=== PATIENT | female | born 1985 | race Caucasian/White ===

== ENCOUNTER 2019-09-02 09:48 | Outpatient (CLI) | payer OTHER, SELFPAY ==
[2019-09-02 10:31] LABS: HCG Quantitative 25.37 mIU/mL
== END 2019-09-02 09:49 | disposition home or self-care (01) ==
LOC: LAB 09:53
PROVIDERS: Family Provider Family Medicine; PCP Family Medicine; Visit Provider Obstetrics & Gynecology Reproductive Endocrinology
DX: N92.6 Irregular menstruation, unspecified (principal)
CPT/HCPCS: 36415; 84702

== ENCOUNTER 2019-09-04 06:49 | Outpatient (CLI) | payer OTHER, SELFPAY ==
[2019-09-04 07:24] LABS: HCG Quantitative 56.02 mIU/mL
== END 2019-09-04 06:50 | disposition home or self-care (01) ==
PROVIDERS: Family Provider Family Medicine; PCP Family Medicine; Visit Provider Obstetrics & Gynecology Reproductive Endocrinology
DX: N92.6 Irregular menstruation, unspecified (principal)
CPT/HCPCS: 36415; 84702

== ENCOUNTER 2019-09-17 11:29 | Emergency (ER) | payer OTHER, SELFPAY ==
[2019-09-17 11:52] VITALS: BP 142/107; PULSE 98; RESP 16; TEMP 37.3; O2SAT 100; BMI 26.9
--- NOTE | 2019-09-17 12:03 | PC.NURSE ---
Patient reports that she is 5 weeks . Patient states she is being treated in [place] at a fertility clinic. Patient reports this morning she woke up spotting. Patient states that she is now bleeding heavier. Patient reports that the fertility clinic sent her here to get her hormones checked and a transvaginal ultrasound. Patient refusing to get in gown and refusing a pelvic exam.
--- NOTE | 2019-09-17 12:08 | US_ITS ---
NOTE: Report was unsigned for reason: Order was edited. Original Signature date and time was: 09/17/19 6039 WS: [id number] TRANSABDOMINAL AND TRANSVAGINAL FIRST TRIMESTER ULTRASOUND HISTORY: Pain COMPARISON: None available. FINDINGS: Detail evaluation transabdominal transvaginal show no evidence of intrauterine . The salpinx bilaterally were normal. Endometrium measures 0.49 cm no evidence of is seen. Uterus measures 8.95 cm x 4.35 cm Right ovary measures 2.6 cm x 1.1 cm x 2.2 cm. Left ovary measures 2.7 cm x 1.7 cm x 2.5 cm. MTDD US/US OB <=14 wk fetus w transvag IMPRESSION: No evidence of intra or extrauterine .
[2019-09-17 12:22] LABS: Bilirubin Urine Neg (NEGATIVE); Blood Urine 3+ (Negative); Glucose Urine UA Norm (Normal); Ketones Urine Negative (Negative); Leukocyte Esterase Urine Negative (Negative); Nitrate Urine Negative (Negative); Protein Urine Neg (Negative); Specific Gravity, Urine 1.005 (1.005-1.030); Urine Appearance Clear (CLEAR); Urine Color Straw (Yellow); Urobilinogen Urine Norm (Negative)
--- NOTE | 2019-09-17 12:24 | ED_ITS ---
HPI - General: Chief complaint: Vaginal Bleeding Stated complaint: 5 weeks preg and Time Seen by Provider: 09/17/19 12:06 History of Present Illness: HPI Narrative: Darlyn is a very nice 34-year-old female who comes in complaining of vaginal bleeding. Symptoms began today with spotting and now she is developed some significant clots. She is currently 5-1/2 weeks she is followed out of a fertility clinic at [facility] as she has a history of difficulty caring pregnancies. She is 5, para 1 aborta 3. She is currently receiving daily Lovenox injections as they believe she has a clotting disorder that causes her symptoms. She denies any dysuria, fever, cramping, low back pain or otherwise. She is here because she is been instructed to get certain labs performed and a pelvic ultrasound. Patient otherwise no complaints or concerns. Associated symptoms: Deny abdominal pain, dysuria, headache(s), malaise, nausea, syncope or vomiting Review of Systems General: Reports: other (negative unless marked) Const: Denies: fever, chills, body aches, fatigue, malaise or diaphoresis Eyes: Denies: change in vision or blurry vision ENMT: Denies: throat pain, painful swallowing, hoarseness, ear pain, ear discharge, Change in hearing or nasal discharge Card: Denies: chest pain, palpitations, irregular heart rhythm, syncope, pre- syncope, shortness of breath on exertion or shortness of breath when lying down Resp: Denies: shortness of breath, productive cough, non-productive cough, wheezing, coughing up blood or chest congestion GI: Denies: abdominal pain, nausea, vomiting, vomiting blood, coffee grounds in vomit, diarrhea, constipation, cramping, blood in stool or black tarry stool : Denies: flank pain, painful urination, urinary frequency, urinary urgency, decreased urine ouput, urinary incontinence or blood in urine Musc: Denies: neck pain, back pain, extremity pain, extremity swelling, joint pain, joint swelling, joint warmth or joint stiffness Skin/Breast: Denies: rash, skin tenderness or yellow skin Neuro: Denies: headache, numbness in extremities, weakness in extremities, changes in sensation, lack of coordination, difficulty walking, dizziness, vertigo or confusion Endo: Denies: excessive thirst, tired all the time, cold intolerance, excessive sweating, flushing or hot flashes Vince/Lymph: Denies: easy bruising, easy bleeding, petechiae or enlarged lymph nodes All/Imm: Denies: hives, throat swelling, tongue swelling, facial swelling or acute wheezing PFSH ED PFSH: Social History Smoking and tobacco status: never smoked Physical Exam Const: COMMON NORMALS: no apparent distress, oriented x3, no limitations, healthy appearing and well nourished EXAM LIMITATIONS: no altered mental status GENERAL APPEARANCE: cooperative, well kempt and well developed ORIENTATION/CONSCIOUSNESS: Yes awake HENMT: COMMON NORMALS: normocephalic, head/scalp atraumatic, hearing grossly normal bilaterally, external ears normal, EAC's normal, external nose normal and moist oral mucous membranes HEAD & SCALP: normal to inspection, normocephalic and atraumatic FACE & SINUS: normal facial exam and face symmetric NOSE: external nose normal and nares normal EXTERNAL EAR: Yes external ears normal EXTERNAL AUDITORY CANAL: EAC's normal MOUTH: oral and palatal mucosa normal and tongue normal Eye: COMMON NORMALS: PERRL, EOMs intact bilaterally, conjunctivae normal and no scleral icterus GENERAL EYE: normal appearance of both eyes and normal light reflex CONJUNCTIVA: Yes conjunctivae normal SCLERA: sclerae normal CORNEA: Yes corneas normal PUPIL: Yes PERRL DIRECT OPHTHALMOSCOPY: Yes normal light reflex Neck/C-Spine: COMMON NORMALS: full ROM, no lymphadenopathy, supple, no meningeal signs and no JVD GENERAL: Yes normal visual inspection and Yes trachea midline CERVICAL SPINE: Yes cervical ROM normal Chest: COMMONS NORMALS: inspection of chest normal and palpation of chest normal Resp: COMMON NORMALS: normal respiratory effort, no retractions, no use of accessory muscles and clear to auscultation bilaterally EFFORT & INSPECTION: Yes able to speak in complete sentences AUSCULTATION: clear to auscultation bilaterally Cardio: COMMON NORMALS: no JVD, regular rate, regular rhythm, S1 normal heart sound, S2 normal heart sound, no gallops, no clicks, no murmurs and no rub JUGULAR VENOUS DISTENTION: no JVD RATE: regular rate RHYTHM: regular rhythm HEART SOUNDS: S1 normal and S2 normal GI: COMMON NORMALS: soft to palpation, non-tender, no hepatosplenomegaly and no masses INSPECTION: Yes normal to inspection PALPATION: Yes soft and Yes no hepatosplenomegaly : COMMON NORMALS: Yes no CVA tenderness BLADDER/KIDNEY EXAM: Yes no CVA tenderness Back/Pelvis: COMMON NORMALS: no CVA tenderness, thoracic and lumbar spine norm al to inspection, no thoracic nor lumbar tenderness and thoraco-lumbar ROM normal Extremity: COMMON NORMALS: normal to inspection, full ROM, normal capillary refill, no joint enlargement, no clubbing, cyanosis or edema and no calf tenderness Neuro: COMMON NORMALS: oriented x3, CN's II-XII intact bilaterally, moves all extremities, no focal motor deficits and no sensory deficits noted MENINGEAL SIGNS: Yes no meningeal signs Psych: COMMON NORMALS: mental status grossly normal, thought process normal, cooperative, affect normal, speech normal and activity/motor behavior normal APPEARANCE: Yes well kempt SPEECH: Yes normal speech THOUGHT PROCESS: normal thought process Skin: COMMON NORMALS: no rashes or lesions noted, skin turgor normal, no jaundice, no petechiae and no mottling GENERAL SKIN EXAM: no rashes or lesions noted and turgor normal Course ED course: 1230 -patient is adamantly refusing a pelvic exam. She understands this is an appropriate part of the exam for completeness to look for cervical dilatation, pelvic inflammatory disease, tissue in the cervix and vagina among many other reasons. Despite this she is adamant she does not want this done and she is willing to accept any risks or problems that would result from an incomplete evaluation. I will go ahead and ask her again once more the work-up is complete to see if she is had a change of heart but at this time she is adamant she does not want this done. Vital Signs: Vital signs: Vital Signs Temperature 99.1 F 09/17/19 11:52 Pulse Rate 98 09/17/19 11:52 Respiratory Rate 16 09/17/19 11:52 Blood Pressure 142/107 09/17/19 11:52 Pulse Oximetry 100 09/17/19 11:52 MDM - OB/Uterine Contractions Lab Data: Labs: Lab Results 09/17/19 09/17/19 Range/Units 12:05 12:23 WBC 6.8 (4.0-10.0) 10^3/ uL RBC 4.91 (4.1-5.3) 10^6/u L Hgb 14.1 (11.5-15.3) g/dL Hct 42.8 (37.0-47.0) % MCV 87.2 (81-99) fL MCH 28.7 (28.0-34.0) pg MCHC 32.9 (30.0-36.0) g/dL RDW 11.6 L (12.1-15.1) % Plt Count 279 (130-400) 10^3/c mm MPV 9.8 (7.4-10.4) fL Neut % (Auto) 77.4 % Lymph % (Auto) 18.0 % [place] % (Auto) 3.5 % Eos % (Auto) 0.4 % Baso % (Auto) 0.4 % Neut # (Auto) 5.3 (1.8-7.7) 10^3/u L Lymph # (Auto) 1.2 (0.8-4.8) 10^3/u L [place] # (Auto) 0.2 (0.2-0.9) 10^3/u L Eos # (Auto) 0.0 (0.0-0.8) 10^3/u L Baso # (Auto) 0.0 (0.0-0.1) 10^3/u L Nucleated RBC % (a uto) 0 % Nucleated RBCs # 0.0 /100WBC Urine Color Straw (Yellow) Urine Appearance Clear (CLEAR) Urine pH 7.0 (5-7) Ur Specific Gravit y 1.005 (1.005-1.030) Urine Protein Neg (Negative) Urine Glucose (UA) Norm (Normal) Urine Ketones Negative (Negative) Urine Blood 3+ H (Negative) Urine Nitrate Negative (Negative) Urine Bilirubin Neg (NEGATIVE) Urine Urobilinogen Norm (Negative) mg/dL Ur Leukocyte Marlin ase Negative (Negative) Coding Level of Care Code ED Supervisor [employer] for Chg Fwd Exam Comprehensive
--- NOTE | 2019-09-17 12:25 | ED_ITS ---
Entered by Candace Hernandes, acting as scribe for HPI - Female Genitourinary General: Chief complaint: Vaginal Bleeding Stated complaint: 5 weeks preg and Time Seen by Provider: 09/17/19 12:06 Source: patient and RN notes reviewed Mode of arrival: ambulatory Limitations: no limitations History of Present Illness: HPI Narrative: Darlyn is a very nice 34-year-old female who comes in complaining of vaginal bleeding. She says she started spotting earlier today and then had heavier bleeding later in the day. She believes herself to be 5-1/2 weeks . She has a clotting disorder that is not been named but is followed out of a fertility clinic in [place]. She is 5 para 1 aborta 3. 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 She denies any other discharge, abdominal pain, pelvic pain, dysuria, urinary frequency urgency or any other complaints. Onset (ago): hour(s) (this morning) Associated symptoms: Deny abdominal pain, headache(s), nausea or syncope Related Data: : 5 Review of Systems General: Reports: other (negative unless marked) Const: Denies: fever, chills, body aches, fatigue, malaise or diaphoresis Eyes: Denies: change in vision or blurry vision ENMT: Denies: throat pain, painful swallowing, hoarseness, ear pain, ear discharge, Change in hearing or nasal discharge Card: Denies: chest pain, palpitations, irregular heart rhythm, syncope, pre- syncope, shortness of breath on exertion or shortness of breath when lying down Resp: Denies: shortness of breath, productive cough, non-productive cough, wh eezing, coughing up blood or chest congestion GI: Denies: abdominal pain, nausea, vomiting, vomiting blood, coffee grounds in vomit, diarrhea, constipation, cramping, blood in stool or black tarry stool : Reports: other (See HPI); Denies: flank pain, painful urination, urinary frequency, urinary urgency, decreased urine ouput, urinary incontinence or blood in urine Musc: Denies: neck pain, back pain, extremity pain, extremity swelling, joint pain, joint swelling, joint warmth or joint stiffness Skin/Breast: Denies: rash, skin tenderness or yellow skin Neuro: Denies: headache, numbness in extremities, weakness in extremities, changes in sensation, lack of coordination, difficulty walking, dizziness, vertigo or confusion Endo: Denies: excessive thirst, tired all the time, cold intolerance, excessive sweating, flushing or hot flashes Vince/Lymph: Denies: easy bruising, easy bleeding, petechiae or enlarged lymph nodes All/Imm: Denies: hives, throat swelling, tongue swelling, facial swelling or acute wheezing PFSH ED PFSH: Social History Smoking and tobacco status: never smoked Female Reproductive History: : 5 Physical Exam Const: COMMON NORMALS: no apparent distress, oriented x3, no limitations, healthy appearing and well nourished EXAM LIMITATIONS: no altered mental status GENERAL APPEARANCE: cooperative, well kempt and well developed ORIENTATION/CONSCIOUSNESS: Yes awake HENMT: COMMON NORMALS: normocephalic, head/scalp atraumatic, hearing grossly normal bilaterally, external ears normal, EAC's normal, external nose normal and moist oral mucous membranes HEAD & SCALP: normal to inspection, normocephalic and atraumatic FACE & SINUS: normal facial exam and face symmetric NOSE: external nose normal and nares normal EXTERNAL EAR: Yes external ears normal EXTERNAL AUDITORY CANAL: EAC's normal MOUTH: oral and palatal mucosa normal and tongue normal Eye: COMMON NORMALS: PERRL, EOMs intact bilaterally, conjunctivae normal and no scleral icterus GENERAL EYE: normal appearance of both eyes and normal light reflex CONJUNCTIVA: Yes conjunctivae normal SCLERA: sclerae normal CORNEA: Yes corneas normal PUPIL: Yes PERRL DIRECT OPHTHALMOSCOPY: Yes normal light reflex Neck/C-Spine: COMMON NORMALS: full ROM, no lymphadenopathy, supple, no meningeal signs and no JVD GENERAL: Yes normal visual inspection and Yes trachea midline CERVICAL SPINE: Yes cervical ROM normal Chest: COMMONS NORMALS: inspection of chest normal and palpation of chest normal Resp: COMMON NORMALS: normal respiratory effort, no retractions, no use of accessory muscles and clear to auscultation bilaterally EFFORT & INSPECTION: Yes able to speak in complete sentences AUSCULTATION: clear to auscultation bilaterally Cardio: COMMON NORMALS: no JVD, regular rate, regular rhythm, S1 normal heart sound, S2 normal heart sound, no gallops, no clicks, no murmurs and no rub JUGULAR VENOUS DISTENTION: no JVD RATE: regular rate RHYTHM: regular rhythm HEART SOUNDS: S1 normal and S2 normal GI: COMMON NORMALS: soft to palpation, non-tender, no hepatosplenomegaly and no masses INSPECTION: Yes normal to inspection PALPATION: Yes soft and Yes no hepatosplenomegaly : COMMON NORMALS: Yes no CVA tenderness BLADDER/KIDNEY EXAM: Yes no CVA tenderness Back/Pelvis: COMMON NORMALS: no CVA tenderness, thoracic and lumbar spine normal to inspection, no thoracic nor lumbar tenderness and thoraco-lumbar ROM normal Extremity: COMMON NORMALS: normal to inspection, full ROM, normal capillary refill, no joint enlargement, no clubbing, cyanosis or edema and no calf tenderness Neuro: COMMON NORMALS: oriented x3, CN's II-XII intact bilaterally, moves all extremities, no focal motor deficits and no sensory deficits noted MENINGEAL SIGNS: Yes no meningeal signs Psych: COMMON NORMALS: mental status grossly normal, thought process normal, cooperative, affect normal, speech normal and activity/motor behavior normal APPEARANCE: Yes well kempt SPEECH: Yes normal speech THOUGHT PROCESS: normal thought process Skin: COMMON NORMALS: no rashes or lesions noted, skin turgor normal, no jaundice, no petechiae and no mottling GENERAL SKIN EXAM: no rashes or lesions noted and turgor normal Course Vital Signs: Vital signs: Vital Signs Temperature 99.1 F 09/17/19 11:52 Pulse Rate 98 09/17/19 11:52 Respiratory Rate 16 09/17/19 11:52 Blood Pressure 142/107 09/17/19 11:52 Pulse Oximetry 100 09/17/19 11:52 MDM - Female MDM Narrative: Medical decision making narrative: Patient is understands that this is likely an early miscarriage. I have informed her that since her beta hCG is falling that this is likely an incomplete miscarriage. I have informed her an ectopic cannot be ruled out and she understands this. She agrees to return should her symptoms change or worsen sooner than Friday but she plans on returning here on Friday for repeat blood testing and ultrasound. Lab Data: Attestation: I reviewed the patient's lab results. Labs: Lab Results 09/17/19 09/17/19 09/17/19 Range/Units 12:05 12:23 12:23 WBC 6.8 (4.0-10.0) 10^3/ uL RBC 4.91 (4.1-5.3) 10^6/u L Hgb 14.1 (11.5-15.3) g/dL Hct 42.8 (37.0-47.0) % MCV 87.2 (81-99) fL MCH 28.7 (28.0-34.0) pg MCHC 32.9 (30.0-36.0) g/dL RDW 11.6 L (12.1-15.1) % Plt Count 279 (130-400) 10^3/c mm MPV 9.8 (7.4-10.4) fL Neut % (Auto) 77.4 % Lymph % (Auto) 18.0 % [place] % (Auto) 3.5 % Eos % (Auto) 0.4 % Baso % (Auto) 0.4 % Neut # (Auto) 5.3 (1.8-7.7) 10^3/u L Lymph # (Auto) 1.2 (0.8-4.8) 10^3/u L [place] # (Auto) 0.2 (0.2-0.9) 10^3/u L Eos # (Auto) 0.0 (0.0-0.8) 10^3/u L Baso # (Auto) 0.0 (0.0-0.1) 10^3/u L Nucleated RBC % (a uto) 0 % Nucleated RBCs # 0.0 /100WBC Sodium (136-145) mmol/L Potassium (3.5-5.1) mmol/L Chloride (98-107) mmol/L Carbon Dioxide (22-29) mmol/L Anion Gap (5-19) BUN (6-20) mg/dL Creatinine (0.5-0.9) mg/dL GFR Calculation (90-130) mL/min Glucose (65-115) mg/dL Calcium (8.5-10.5) mg/dL Total Bilirubin (0.15-1.2) mg/dL AST (0-32) U/L ALT (0-33) U/L Alkaline Phosphata se (35-105) IU/L Total Protein (6.6-8.7) g/dL Albumin (3.5-5.2) g/dL Globulin (1.3-4.6) g/dL Progesterone ng/mL Ser , Jade i-Qnt mIU/mL Urine Color Straw (Yellow) Urine Appearance Clear (CLEAR) Urine pH 7.0 (5-7) Ur Specific Gravit y 1.005 (1.005-1.030) Urine Protein Neg (Negative) Urine Glucose (UA) Norm (Normal) Urine Ketones Negative (Negative) Urine Blood 3+ H (Negative) Urine Nitrate Negative (Negative) Urine Bilirubin Neg (NEGATIVE) Prot Sulfosalicyli c Acd Urine Urobilinogen Norm (Negative) mg/dL Ur Leukocyte Marlin ase Negative (Negative) Urine RBC 15-25 H (0-2) /hpf Urine WBC None (0-5) /hpf Ur Squamous Epith Cells 15-25 H (0-5) Urine Bacteria Trace (NONE) Blood Type B Positive Rho(D) Type Positive 09/17/19 09/17/19 09/17/19 Range/Units 12:23 12:23 12:35 WBC (4.0-10.0) 10^3/ uL RBC (4.1-5.3) 10^6/u L Hgb (11.5-15.3) g/dL Hct (37.0-47.0) % MCV (81-99) fL MCH (28.0-34.0) pg MCHC (30.0-36.0) g/dL RDW (12.1-15.1) % Plt Count (130-400) 10^3/c mm MPV (7.4-10.4) fL Neut % (Auto) % Lymph % (Auto) % [place] % (Auto) % Eos % (Auto) % Baso % (Auto) % Neut # (Auto) (1.8-7.7) 10^3/u L Lymph # (Auto) (0.8-4.8) 10^3/u L [place] # (Auto) (0.2-0.9) 10^3/u L Eos # (Auto) (0.0-0.8) 10^3/u L Baso # (Auto) (0.0-0.1) 10^3/u L Nucleated RBC % (a uto) % Nucleated RBCs # /100WBC Sodium 139 (136-145) mmol/L Potassium 3.9 (3.5-5.1) mmol/L Chloride 102 (98-107) mmol/L Carbon Dioxide 25 (22-29) mmol/L Anion Gap 15.9 (5-19) BUN 10 (6-20) mg/dL Creatinine 0.9 (0.5-0.9) mg/dL GFR Calculation 71.3 L (90-130) mL/min Glucose 133 H (65-115) mg/dL Calcium 10.0 (8.5-10.5) mg/dL Total Bilirubin 0.3 (0.15-1.2) mg/dL AST 22 (0-32) U/L ALT 31 (0-33) U/L Alkaline Phosphata se 46 (35-105) IU/L Total Protein 7.1 (6.6-8.7) g/dL Albumin 4.3 (3.5-5.2) g/dL Globulin 2.8 (1.3-4.6) g/dL Progesterone 1.46 ng/mL Ser , Jade i-Qnt 44.28 mIU/mL Urine Color Yellow (Yellow) Urine Appearance Clear (CLEAR) Urine pH 8 H (5-7) Ur Specific Gravit y 1.010 (1.005-1.030) Urine Protein Neg (Negative) Urine Glucose (UA) Norm (Normal) Urine Ketones Negative (Negative) Urine Blood Neg (Negative) Urine Nitrate Negative (Negative) Urine Bilirubin Neg (NEGATIVE) Prot Sulfosalicyli c Acd Negative Urine Urobilinogen Norm (Negative) mg/dL Ur Leukocyte Marlin ase Negative (Negative) Urine RBC (0-2) /hpf Urine WBC (0-5) /hpf Ur Squamous Epith Cells (0-5) Urine Bacteria (NONE) Blood Type Rho(D) Type Imaging Data: US OB: Radiologist's impression: [address] [address] Ultrasound Report Signed Patient: Frank Anderson #: [id number] : 1985Acct#:[id number] Age/Sex: 34 / FADM Date: 09/17/19 Loc: ERRoom/Bed: Attending Dr: Ordering Provider/Ordering MD: Ema Leahy DO Date of Service: 09/17/19 Procedure(s): US OB <=14 wk fetus w transvag Accession Number(s): [id number] Report Number: [id number] WS: [id number] TRANSABDOMINAL AND TRANSVAGINAL FIRST TRIMESTER ULTRASOUND HISTORY: Pain COMPARISON: None available. FINDINGS: Detail evaluation transabdominal transvaginal show no evidence of intrauterine . The salpinx bilaterally were normal. Endometrium measures 0.49 cm no evidence of is seen. Uterus measures 8.95 cm x 4.35 cm Right ovary measures 2.6 cm x 1.1 cm x 2.2 cm. Left ovary measures 2.7 cm x 1.7 cm x 2.5 cm. US/US OB <=14 wk fetus w transvag IMPRESSION: No evidence of intra or extrauterine . Dictated By:Mikey Thrasher DO Signed By:Mikey Thrasher DOSigned Date/Time:09/17/19 1307 DD/ Discharge Plan Discharge Patient Disposition: Home, Self-Care Clinical Impression: Vaginal bleeding, Incomplete Condition: Stable Prescriptions: New Macrobid 100 mg capsule 100 mg PO BID 7 Days Qty: 14 RF: 0 Discharge Orders: Discharge Order (Routine); Ordered 09/17/19 Ordered By: Ema Leahy Referrals: Ema Leahy [Emergency Provider] - 1-3 days Eitan Lucas MD [Primary Care Provider] - 1-3 days Discharge Diet: Advance as tolerated Discharge Activity: Increase activity as tolerated Patient Instructions: Ectopic (ED), Spontaneous Miscarriage (ED), Threatened Miscarriage (ED) Activity Restrictions/Additional Instructions: Please return to the ER immediately for any of the signs or symptoms listed on your discharge instruction sheets, worsening/changing of your symptoms, you are not getting better as quickly as expected, or for ANY other cause or concerns. Normal early versus ectopic or incomplete miscarriage are all possibilities as a cause of your symptoms. It is imperative you return here on Friday for repeat quantitative hCG testing and repeat ultrasound. Return sooner for heavier bleeding, pain, fever, vomiting, or for any other cause for concern. Discharge Date/Time: 09/17/19 13:58 Coding Level of Care Code ED Gear Cutting Machine Operator for Chg Fwd Exam Comprehensive The documentation recorded by the Cecilio best Valerie R, accurately reflects the service I personally performed and the decisions made by me, Ema Leahy Sep 17, 2019 11:29
[2019-09-17 12:31] LABS: Basophils % 0.4 %; Eosinophils % 0.4 %; Hematocrit 42.8 % (37.0-47.0); Hemoglobin 14.1 g/dL (11.5-15.3); Lymphocytes # 1.2 10^3/uL (0.8-4.8); Mean Corpuscular HGB Conc 32.9 g/dL (30.0-36.0); Mean Corpuscular Hemoglobin 28.7 pg (28.0-34.0); Mean Corpuscular Volume 87.2 fL (81-99); Mean Platelet Volume 9.8 fL (7.4-10.4); Monocytes # 0.2 10^3/uL (0.2-0.9); Monocytes % 3.5 %; Neutrophils # 5.3 10^3/uL (1.8-7.7); Neutrophils % 77.4 %; Nucleated Red Blood Cells % 0 %; Platelet Count 279 10^3/cmm (130-400); Red Blood Count 4.91 10^6/uL (4.1-5.3); Red Cell Distribution Width 11.6 % (12.1-15.1); White Blood Count 6.8 10^3/uL (4.0-10.0)
[2019-09-17 12:40] LABS: Add Urine Culture? No; Bacteria Urine TRACE; RBC Urine 15-25 /hpf (0-2); Squamous Epithelial Cell Urine 15-25 (0-5)
[2019-09-17 12:44] LABS: Add Urine Microscopic? NO
[2019-09-17 12:53] LABS: HCG Quantitative 44.28 mIU/mL
[2019-09-17 12:58] LABS: Bilirubin Urine Neg (NEGATIVE); Blood Urine Neg (Negative); Glucose Urine UA Norm (Normal); Ketones Urine Negative (Negative); Leukocyte Esterase Urine Negative (Negative); Nitrate Urine Negative (Negative); Protein Urine Neg (Negative); Sulfosalicylic Acid Urine Negative; Urine Appearance Clear (CLEAR); Urine Color Yellow (Yellow); Urobilinogen Urine Norm (Negative); pH Urine 8 (5-7)
[2019-09-17 13:04] LABS: Alanine Aminotransferase 31 U/L (0-33); Albumin Level 4.3 g/dL (3.5-5.2); Alkaline Phosphatase 46 IU/L (35-105); Anion Gap 15.9 (5-19); Aspartate Amino Transferase 22 U/L (0-32); Blood Urea Nitrogen 10 mg/dL (6-20); Carbon Dioxide 25 mmol/L (22-29); Chloride 102 mmol/L (98-107); Globulin 2.8 g/dL (1.3-4.6); Glomerular Filtration Rate 71.3 mL/min (90-130); Glucose 133 mg/dL (65-115); Potassium 3.9 mmol/L (3.5-5.1); Progesterone 1.46 ng/mL; Sodium 139 mmol/L (136-145); Total Bilirubin 0.3 mg/dL (0.15-1.2); Total Protein 7.1 g/dL (6.6-8.7)
--- NOTE | 2019-09-17 13:24 | PC.NURSE ---
Rounded on patient. Patient resting in bed. No distress noted. Patient has no needs at this time. Will continue to monitor patient.
[2019-09-17] MEDS: nitrofurantoin SR (BID) 100 mg Capsule PO (13:56)
== END 2019-09-17 13:58 | disposition home or self-care (01) ==
PROVIDERS: Nurse Practitioner Family; Emergency Provider Emergency Medicine; Family Provider Family Medicine; PCP Family Medicine
DX: O03.4 Incomplete spontaneous abortion without complication (principal)
CPT/HCPCS: 12345; 76801; 76815; 76817; 80053; 81001; 81003; 84144; 84702; 85025; 86900; 87491; 87591; 99283; A9270

== ENCOUNTER 2019-09-20 09:27 | Outpatient (CLI) | payer OTHER, SELFPAY ==
[2019-09-20 09:56] LABS: HCG Quantitative 8.14 mIU/mL
== END 2019-09-20 09:28 | disposition home or self-care (01) ==
LOC: LAB 09:29
PROVIDERS: Family Provider Family Medicine; PCP Family Medicine; Visit Provider Obstetrics & Gynecology Reproductive Endocrinology
DX: O03.4 Incomplete spontaneous abortion without complication (principal)
CPT/HCPCS: 84702

== ENCOUNTER 2019-09-27 07:20 | Outpatient (CLI) | payer OTHER, SELFPAY ==
[2019-09-27 07:59] LABS: HCG Quantitative < 0.50 mIU/mL
== END 2019-09-27 07:21 | disposition home or self-care (01) ==
LOC: LAB 07:20
PROVIDERS: Family Provider Family Medicine; PCP Family Medicine; Visit Provider Obstetrics & Gynecology Reproductive Endocrinology
DX: R10.2 Pelvic and perineal pain (principal)
CPT/HCPCS: 36415; 84702

== ENCOUNTER 2019-10-19 06:46 | Outpatient (CLI) | payer OTHER, SELFPAY ==
[2019-10-19 07:34] LABS: Follicle Stimulating Hormone 7.4 mIU/mL; Luteinizing Hormone 8.7 mIU/mL (0.5-41.7); Progesterone 0.558 ng/mL
[2019-10-19 07:35] LABS: Estradiol. 26.9 pg/mL
== END 2019-10-19 06:47 | disposition home or self-care (01) ==
LOC: LAB 06:50
PROVIDERS: Family Provider Family Medicine; PCP Family Medicine; Visit Provider Obstetrics & Gynecology Reproductive Endocrinology
DX: Z01.89 Encounter for other specified special examinations (principal)
CPT/HCPCS: 36415; 82670; 83001; 83002; 84144; 84702

== ENCOUNTER 2019-10-31 07:30 | Emergency (ER) | payer OTHER, SELFPAY ==
[2019-10-31 07:37] VITALS: BMI 27.4
[2019-10-31 07:40] VITALS: BP 125/93; PULSE 122; RESP 20; TEMP 36.8; O2SAT 99
--- NOTE | 2019-10-31 07:50 | ED_ITS ---
HPI - Headache General: Chief Complaint: Headache Stated Complaint: MIGRAINE, ABSCESS TOOTH Time Seen by Provider: 10/31/19 07:35 History of Present Illness: HPI Narrative: Patient arrives in the ER with a complaint of headache and abscessed tooth. Has a history of migraines. Patient states that started with an abscess on and is progressing to a migraine now. She does have photo phonophobia and photosensitivity. Has nausea and vomiting. Has abscessed tooth. Has taken hydrocodone and clindamycin. Threw up the hydrocodone she said this morning. MD elicited complaint: migraine Pertinent past history: migraines Onset (ago): day(s) Onset description: gradually Location: diffuse and down into neck Severity: severe Quality & Timing: throbbing Exacerbating factors: none Relieving factors: dark room Associated symptoms: Reports nausea and vomiting; Deny chest pain, fever(s) or rash Treatments prior to arrival: prescription analgesic Review of Systems Const: Denies: fever, chills or body aches Eyes: Denies: change in vision or blurry vision ENMT: Reports: dental pain; Denies: throat pain or nasal congestion Card: Denies: chest pain or shortness of breath on exertion Resp: Denies: shortness of breath, productive cough or non-productive cough GI: Reports: nausea and vomiting Musc: Denies: extremity pain Skin/Breast: Denies: rash Neuro: Reports: headache Psych: Denies: anxiety or depression Vince/Lymph: Denies: easy bruising PFSH ED PFSH: Social History Smoking and tobacco status: never smoked Female Reproductive History: Date of last menstrual period: 10/17/19 Physical Exam Const: COMMON NORMALS: no apparent distress, average body habitus and oriented x3 HENMT: COMMON NORMALS: normocephalic HEAD & SCALP: normal to inspection and normocephalic FACE & SINUS: normal facial exam Eye: COMMON NORMALS: conjunctivae normal GENERAL EYE: normal appearance of both eyes CONJUNCTIVA: Yes conjunctivae normal Neck/C-Spine: COMMON NORMALS: no JVD Chest: COMMONS NORMALS: inspection of chest normal Resp: COMMON NORMALS: normal respiratory effort and clear to auscultation bilaterally AUSCULTATION: clear to auscultation bilaterally Cardio: COMMON NORMALS: no JVD, regular rate and regular rhythm RATE: regular rate RHYTHM: regular rhythm GI: COMMON NORMALS: normal to inspection, nondistended, normoactive bowel sounds Extremity: COMMON NORMALS: normal to inspection and full ROM Neuro: COMMON NORMALS: oriented x3 and CN's II-XII intact bilaterally Course Vital Signs: Vital signs: Vital Signs Temperature 98.2 F 10/31/19 07:40 Pulse Rate 93 10/31/19 10:54 Respiratory Rate 16 10/31/19 10:54 Blood Pressure 118/79 10/31/19 10:54 Pulse Oximetry 100 10/31/19 10:54 Discharge Plan Discharge Patient Disposition: Home, Self-Care Clinical Impression: Migraine Qualifiers: Migraine type: without aura Status migrainosus presence: without status migrainosus Intractability: intractable Qualified Code(s): G43.019 - Migraine without aura, intractable, without status migrainosus Condition: Stable Prescriptions: New Zofran 4 mg tablet 4 mg PO Q8H PRN (Reason: nausea and vomiting) 3 Days Qty: 12 RF: 0 Imitrex 100 mg tablet 100 mg PO Q2H PRN (Reason: migraine headache) Qty: 9 RF: 0 No Action clindamycin HCl 300 mg Capsule 300 mg PO Q8H RF: 0 hydrocodone-acetaminophen 5-325 mg Tablet 1 tab PO Q6H PRN (Reason: Pain (Scale Score 4-6)) RF: 0 Discharge Orders: Discharge Order (Routine); Ordered 10/31/19 Ordered By: Brice Sánchez Referrals: Eitan Lucas MD [Primary Care Provider] - Discharge Diet: Usual diet Discharge Activity: Resume usual activity Patient Instructions: Dental Abscess (ED), Migraine Headache (ED) Activity Restrictions/Additional Instructions: Follow-up with medical provider as directed. Take medications as prescribed. Return to the ER or your medical provider if condition worsens. Please read and understand discharge instructions. If any questions ask please. Discharge Date/Time: 10/31/19 10:48 Coding Level of Care Code ED Other Sports Official for Log Fwd Exam Comprehensive
[2019-10-31] MEDS: ketorolac 30 mg/mL INJ IVP (08:09)
[2019-10-31] MEDS: ondansetron 2 mg/ML SDV 2 mL 4 MG IVP (08:09)
[2019-10-31] MEDS: sodium chloride 0.9% 1,000 ML 999 ML IV (08:11)
[2019-10-31] MEDS: diphenhydrAMINE 50 mg/mL SDV 1mL IVP (08:21)
[2019-10-31 08:30] VITALS: BP 130/75; PULSE 136; RESP 16; O2SAT 99
[2019-10-31] MEDS: SUMAtriptan 6 mg/0.5 mL SDV SUBCUT (08:50)
[2019-10-31 09:00] VITALS: BP 118/90; PULSE 96; RESP 18; O2SAT 98
[2019-10-31] MEDS: orphenadrine 30 mg/mL Inj 2 mL 60 MG IVP (09:05)
--- NOTE | 2019-10-31 09:15 | PC.NURSE ---
Patient reported increased tenseness and a knot feeling in her neck after receiving the sumatriptan. Patient states the feeling is worse after receiving med. Patient given norflex at this time. Patient states she is very sensitive to medications, meds pushed slowly.
[2019-10-31 10:54] VITALS: BP 118/79; PULSE 93; RESP 16; O2SAT 100
== END 2019-10-31 10:48 | disposition home or self-care (01) ==
PROVIDERS: Emergency Provider Nurse Practitioner Family; Family Provider Family Medicine; PCP Family Medicine
DX: G43.019 Migraine without aura, intractable, without status migrainosus (principal)
CPT/HCPCS: 12345; 96361; 96372; 96374; 96375; 99283; 99284; J1200; J1885; J2360; J2405; J3030; J7030

== ENCOUNTER 2019-12-09 15:43 | Outpatient (CLI) | payer OTHER, SELFPAY ==
[2019-12-09 16:32] LABS: HCG Quantitative 21.67 mIU/mL; Progesterone 26.12 ng/mL
== END 2019-12-09 15:44 | disposition home or self-care (01) ==
LOC: LAB 15:47
PROVIDERS: PCP Family Medicine; Visit Provider Obstetrics & Gynecology Reproductive Endocrinology
DX: N92.6 Irregular menstruation, unspecified (principal)
CPT/HCPCS: 36415; 84144; 84702

== ENCOUNTER 2019-12-13 08:22 | Outpatient (CLI) | payer OTHER, SELFPAY ==
[2019-12-13 09:07] LABS: Progesterone 25.82 ng/mL
== END 2019-12-13 08:23 | disposition home or self-care (01) ==
LOC: LAB 08:24
PROVIDERS: PCP Family Medicine; Visit Provider Obstetrics & Gynecology Reproductive Endocrinology
DX: Z01.89 Encounter for other specified special examinations (principal)
CPT/HCPCS: 36415; 84144; 84702

== ENCOUNTER 2019-12-20 10:23 | Outpatient (CLI) | payer OTHER, SELFPAY ==
[2019-12-20 11:05] LABS: Progesterone 19.55 ng/mL
== END 2019-12-20 10:24 | disposition home or self-care (01) ==
LOC: LAB 10:26
PROVIDERS: PCP Family Medicine; Visit Provider Obstetrics & Gynecology Reproductive Endocrinology
DX: Z01.89 Encounter for other specified special examinations (principal)
CPT/HCPCS: 36415; 84144; 84702

== ENCOUNTER 2019-12-22 08:35 | Outpatient (CLI) | payer OTHER, SELFPAY ==
[2019-12-22 09:20] LABS: Progesterone 20.52 ng/mL
== END 2019-12-22 08:36 | disposition home or self-care (01) ==
LOC: LAB 08:39
PROVIDERS: PCP Family Medicine; Visit Provider Obstetrics & Gynecology Reproductive Endocrinology
DX: Z01.89 Encounter for other specified special examinations (principal)
CPT/HCPCS: 36415; 84144; 84702

== ENCOUNTER 2020-01-13 18:10 | Emergency (ER) | payer OTHER, SELFPAY ==
--- NOTE | 2020-01-13 18:13 | US_ITS ---
WS: [id number] EARLY OBSTETRICAL ULTRASOUND (<14 WEEKS). HISTORY: threatened miscarriage COMPARISON: None available. Single intrauterine gestational sac is identified. Cardiac activity at 171 BPM. Loco-rump length brandi sures 1.9 cm which corresponds to a gestation of 8w3d. Normal-appearing yolk sac and amnion demonstra yumi. No subchorionic hemorrhage. No free fluid. Normal size ovaries. No free fluid. US/US OB <= 14 weeks fetus [id number] IMPRESSION: 1. Single intrauterine gestation of 8 weeks 3 days with an EDC of 08/21/2020. 2. No complications.
[2020-01-13 18:38] VITALS: BP 140/83; PULSE 98; RESP 16; TEMP 36.9; O2SAT 100; BMI 27.8
--- NOTE | 2020-01-13 18:46 | ED_ITS ---
HPI - General: Chief complaint: OB/Uterine Contractions Stated complaint: 8 weeks preg/bleeding Time Seen by Provider: 01/13/20 18:46 Source: patient Mode of arrival: ambulatory Limitations: no limitations History of Present Illness: HPI Narrative: Patient comes in today for complaints of vaginal bleeding. Patient has had 6 pregnancies with 1 full-term delivery. 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 Patient at this time goes through [place] [facility] and high risk in [place]. Patient sees Dr. Lucas for her primary care. Patient was released back to work and had started an increase in activity at work and then noticed spotting today. Patient did have a little bit urinary urgency today. Patient appears well. Patient appears no acute distress. Date of Last Menstrual Period: 10/17/19 Review of Systems General: Reports: 10 or more systems reviewed and unremarkable except in HPI and below : Reports: vaginal bleeding PFSH ED PFSH: Social History Smoking and tobacco status: never smoked Female Reproductive History: Date of last menstrual period: 10/17/19 Physical Exam Const: COMMON NORMALS: no acute distress and patient oriented x3 GENERAL APPEARANCE: cooperative HENMT: COMMON NORMALS: normocephalic and Normal external nose present HEAD & SCALP: normal to inspection and normocephalic NOSE: Normal external nose present MOUTH: Normal oral and palatal mucosa present THROAT: posterior oropharynx normal Eye: GENERAL EYE: appearance normal, both eyes and all related structures Neck/C-Spine: COMMON NORMALS: full ROM Chest: COMMONS NORMALS: normal inspection of the chest Resp: COMMON NORMALS: normal respiratory effort EFFORT & INSPECTION: Yes able to speak in complete sentences Cardio: COMMON NORMALS: regular rate and regular rhythm RATE: regular rate RHYTHM: regular rhythm GI: COMMON NORMALS: non-tender : COMMON NORMALS: Yes no CVA tenderness BLADDER/KIDNEY EXAM: Yes no CVA tenderness Back/Pelvis: COMMON NORMALS: no CVA tenderness and thoracic and lumbar spine normal to inspection Extremity: COMMON NORMALS: normal to inspection Neuro: COMMON NORMALS: patient oriented x3 and moves all extremities Psych: COMMON NORMALS: mental status grossly normal and cooperative Skin: COMMON NORMALS: no rashes or lesions noted GENERAL SKIN EXAM: no rashes or lesions noted Course Vital Signs: Vital signs: Vital Signs Temperature 98.4 F 01/13/20 18:38 Pulse Rate 98 01/13/20 18:38 Respiratory Rate 16 01/13/20 18:38 Blood Pressure 140/83 01/13/20 18:38 Pulse Oximetry 100 01/13/20 18:38 MDM - OB/Uterine Contractions MDM Narrative: Medical decision making narrative: Patient comes in today for complaints of vaginal spotting. Patient states that she just noticed some whenever she would wipe after urinating. Patient feels that it is vaginal. Patient appears well. Patient appears in no acute distress. Patient does have a history of group B strep and has recently completed treatment about 2 weeks ago with cephalexin 504 times a day. Friday patient had since seen by her [employer]BLER and everything was normal. Exam today notes no CVA tenderness, heart rates regular, vital signs are normal. Respirations are even lungs are clear to auscultation. Differential diagnosis includes cystitis, threatened miscarriage, first trimester spotting. Laboratory values noted a hemoglobin of 13 and hematocrit of 40, hCG was 125,000, ultrasound noted a in utero with a heart rate of 170, at a gestational date of 8 weeks. Reviewed exam with patient with recommendations for treatment and need for follow-up. Patient reports understanding agreed to plan. Lab Data: Labs: Lab Results 01/13/20 01/13/20 01/13/20 Range/Units 18:45 19:15 19:15 WBC 10.7 H (4.0-10.0) 10^3/ uL RBC 4.55 (4.1-5.3) 10^6/u L Hgb 13.5 (11.5-15.3) g/dL Hct 40.3 (37.0-47.0) % MCV 88.6 (81-99) fL MCH 29.7 (28.0-34.0) pg MCHC 33.5 (30.0-36.0) g/dL RDW 12.1 (12.1-15.1) % Plt Count 272 (130-400) 10^3/c mm MPV 9.9 (7.4-10.4) fL Neut % (Auto) 70.6 % Lymph % (Auto) 22.2 % [place] % (Auto) 4.9 % Eos % (Auto) 1.6 % Baso % (Auto) 0.4 % Neut # (Auto) 7.6 (1.8-7.7) 10^3/u L Lymph # (Auto) 2.4 (0.8-4.8) 10^3/u L [place] # (Auto) 0.5 (0.2-0.9) 10^3/u L Eos # (Auto) 0.2 (0.0-0.8) 10^3/u L Baso # (Auto) 0.0 (0.0-0.1) 10^3/u L Nucleated RBC % (a uto) 0 % Nucleated RBCs # 0.0 /100WBC Ser , Jade i-Qnt mIU/mL Urine Color Yellow (Yellow) Urine Appearance Clear (CLEAR) Urine pH 6.5 (5-7) Ur Specific Gravit y 1.010 (1.005-1.030) Urine Protein Neg (Negative) Urine Glucose (UA) Norm (Normal) Urine Ketones Negative (Negative) Urine Blood Neg (Negative) Urine Nitrate Negative (Negative) Urine Bilirubin Neg (NEGATIVE) Urine Urobilinogen Norm (Negative) mg/dL Ur Leukocyte Marlin ase Negative (Negative) Blood Type B Positive Rho(D) Type Positive 01/13/20 Range/Units 19:15 WBC (4.0-10.0) 10^3/ uL RBC (4.1-5.3) 10^6/u L Hgb (11.5-15.3) g/dL Hct (37.0-47.0) % MCV (81-99) fL MCH (28.0-34.0) pg MCHC (30.0-36.0) g/dL RDW (12.1-15.1) % Plt Count (130-400) 10^3/c mm MPV (7.4-10.4) fL Neut % (Auto) % Lymph % (Auto) % [place] % (Auto) % Eos % (Auto) % Baso % (Auto) % Neut # (Auto) (1.8-7.7) 10^3/u L Lymph # (Auto) (0.8-4.8) 10^3/u L [place] # (Auto) (0.2-0.9) 10^3/u L Eos # (Auto) (0.0-0.8) 10^3/u L Baso # (Auto) (0.0-0.1) 10^3/u L Nucleated RBC % (a uto) % Nucleated RBCs # /100WBC Ser , Jade i-Qnt 831031.00 mIU/mL Urine Color (Yellow) Urine Appearance (CLEAR) Urine pH (5-7) Ur Specific Gravit y (1.005-1.030) Urine Protein (Negative) Urine Glucose (UA) (Normal) Urine Ketones (Negative) Urine Blood (Negative) Urine Nitrate (Negative) Urine Bilirubin (NEGATIVE) Urine Urobilinogen (Negative) mg/dL Ur Leukocyte Marlin ase (Negative) Blood Type Rho(D) Type Discharge Plan Discharge Patient Disposition: Home, Self-Care Clinical Impression: Miscarriage, threatened, early Condition: Stable Prescriptions: Discontinued clindamycin HCl 300 mg Capsule 300 mg PO Q8H RF: 0 hydrocodone-acetaminophen 5-325 mg Tablet 1 tab PO Q6H PRN (Reason: Pain (Scale Score 4-6)) RF: 0 No Action Imitrex 100 mg tablet 100 mg PO Q2H PRN (Reason: migraine headache) Qty: 9 RF: 0 Discharge Orders: Discharge Order (Routine); Ordered 01/13/20 Ordered By: Levy Zapien Referrals: Eitan Lucas MD [Primary Care Provider] - Discharge Diet: Usual diet Discharge Activity: Increase activity as tolerated Activity Restrictions/Additional Instructions: Home and rest. No lifting. Pelvic rest. Drink plenty of water. Follow-up with high risk specialist in the morning. Return to the ER for worsening bleeding with greater than 1 pad in 30 minutes. Stand Alone Forms: Work/School Release Discharge Date/Time: 01/13/20 20:09 Coding Level of Care Code ED Multifocal Button Inspector for Chg Fwd Exam Comprehensive
[2020-01-13 19:25] LABS: Basophils % 0.4 %; Eosinophils # 0.2 10^3/uL (0.0-0.8); Eosinophils % 1.6 %; Hematocrit 40.3 % (37.0-47.0); Hemoglobin 13.5 g/dL (11.5-15.3); Lymphocytes # 2.4 10^3/uL (0.8-4.8); Lymphocytes % 22.2 %; Mean Corpuscular HGB Conc 33.5 g/dL (30.0-36.0); Mean Corpuscular Hemoglobin 29.7 pg (28.0-34.0); Mean Corpuscular Volume 88.6 fL (81-99); Mean Platelet Volume 9.9 fL (7.4-10.4); Monocytes # 0.5 10^3/uL (0.2-0.9); Monocytes % 4.9 %; Neutrophils # 7.6 10^3/uL (1.8-7.7); Neutrophils % 70.6 %; Nucleated Red Blood Cells % 0 %; Platelet Count 272 10^3/cmm (130-400); Red Blood Count 4.55 10^6/uL (4.1-5.3); Red Cell Distribution Width 12.1 % (12.1-15.1); White Blood Count 10.7 10^3/uL (4.0-10.0)
[2020-01-13 20:01] LABS: Add Urine Microscopic? NO
[2020-01-13 20:14] LABS: Bilirubin Urine Neg (NEGATIVE); Blood Urine Neg (Negative); Glucose Urine UA Norm (Normal); Ketones Urine Negative (Negative); Leukocyte Esterase Urine Negative (Negative); Nitrate Urine Negative (Negative); Protein Urine Neg (Negative); Urine Appearance Clear (CLEAR); Urine Color Yellow (Yellow); Urobilinogen Urine Norm (Negative); pH Urine 6.5 (5-7)
== END 2020-01-13 20:09 | disposition home or self-care (01) ==
PROVIDERS: Emergency Medicine; Emergency Provider Nurse Practitioner Family; PCP Family Medicine
DX: O20.0 Threatened abortion (principal); Z3A.08 8 weeks gestation of pregnancy
CPT/HCPCS: 12345; 76801; 81003; 84702; 85025; 86900; 99281; 99283

== ENCOUNTER → 2020-04-19 09:58 | Outpatient (BNVA) | payer OTHER, SELFPAY | PROVIDERS: PCP Family Medicine; Visit Provider Family Medicine | DX: Z11.59 Encounter for screening for other viral diseases (principal); Z20.828 Contact with and (suspected) exposure to other viral communicable diseases | CPT/HCPCS: 87635 ==

== ENCOUNTER 2020-11-25 11:02 | Emergency (ER) | payer OTHER, SELFPAY ==
[2020-11-25 11:04] VITALS: BP 142/91; PULSE 121; RESP 16; O2SAT 97; BMI 28.3
--- NOTE | 2020-11-25 11:16 | CTR_ITS ---
PROCEDURE INFORMATION: Exam: CT Abdomen And Pelvis With Contrast Exam date and time: 11/25/2020 11:26 AM Age: 35 years old Clinical indication: Other: Hematochezia; Prior surgery; Surgery date: 6+ months; Surgery type: C-sect TECHNIQUE: Imaging protocol: Computed tomography of the abdomen and pelvis with contrast. Radiation optimization: All CT scans at this facility use at least one of these dose optimization techniques: automated exposure control; mA and/or kV adjustment per patient size (includes targeted exams where dose is matched to clinical indication); or iterative reconstruction. Contrast material: OMNI 300; Contrast volume: 95 ml; Contrast route: INTRAVENOUS (IV); COMPARISON: CT abdomen pelvis w con* [id number] 09/20/2015 1:40 PM RADIATION DOSE METRICS: Total DLP (mGy-cm): 1354.32 FINDINGS: Liver: Normal. No mass. Gallbladder and bile ducts: The gallbladder has been surgically removed. There is mild intra and extrahepatic biliary ductal dilatation, likely secondary to post cholecystectomy status. Pancreas: Normal. No ductal dilation. Spleen: Normal. No splenomegaly. Adrenal glands: Normal. No mass. Kidneys and ureters: Possible subtle heterogeneous attenuation of the right kidney. No hydronephrosis or nephrolithiasis. Stomach and bowel: Unremarkable. No obstruction. No mucosal thickening. Appendix: No evidence of appendicitis. Intraperitoneal space: Unremarkable. No free air. No significant fluid collection. Vasculature: Unremarkable. No abdominal aortic aneurysm. Lymph nodes: Unremarkable. No enlarged lymph nodes. Urinary bladder: Unremarkable as visualized. Reproductive: Normal uterus. Small bilateral ovarian cysts noted, measuring 1.2 cm on the right and 0.8 cm on the left. Bones/joints: Unremarkable. No acute fracture. Soft tissues: Unremarkable. CT/CT abdomen pelvis w con* [id number] IMPRESSION: Possible subtle heterogeneous attenuation of the right kidney, which can be seen with pyelonephritis. Clinical correlation is recommended. Radiation Dose CTDIVOL = (mGy): DLP = 1354.32 (mGy-cm)
--- NOTE | 2020-11-25 11:18 | W.ED.GIBLEED ---
HPI - GI Bleed General: Chief complaint: GI Bleed Stated complaint: BLOODY STOOL Time Seen by Provider: 11/25/20 11:05 Source: patient Mode of arrival: ambulatory Limitations: no limitations History of Present Illness: HPI Narrative: Patient is a 35-year-old female with a history of GERD who presents to the emergency department with complaints of bloody stools that have been occurring intermittently for several days. This was preceded by abdominal pain in the epigastric region and in both flanks that has been ongoing for about a week. She denies any fever, no nausea or vomiting. No urinary symptoms. She does not have a prior history of diverticulitis or GI bleed. This morning she felt very weak and decided that she needed to be evaluated in the emergency department. complaint: blood on toilet paper Onset (ago): week(s) (1) Pain Consistency: intermittent Severity: mild Relieving factors: none Exacerbating factors: none Associated symptoms: Reports abdominal pain; Denies chills, easy bruising, epistaxis, fever(s), headache(s), nausea, other bleeding, poor appetite, rash, syncope or vomiting Treatments Prior to Arrival: OTC meds Review of Systems General: Reports: 10 or more systems reviewed and unremarkable except in HPI and below Const: Denies: fever(s) or chills ENMT: Denies: epistaxis Card: Denies: syncope GI: Reports: abdominal pain; Denies: nausea or vomiting Skin/Breast: Denies: rash Neuro: Denies: headache(s) Vince/Lymph: Denies: easy bruising PFS ED PFSH: Surgical History History of delivery Social History Smoking and tobacco status: never smoked Female Reproductive History: Date of last menstrual period: 10/17/19 Physical Exam Const: COMMON NORMALS: no acute distress, average body habitus, patient oriented x3, no limitations, healthy appearing, alert and well nourished HENMT: COMMON NORMALS: normocephalic, atraumatic and moist oral mucous membranes HEAD & SCALP: normocephalic and atraumatic Neck/C-Spine: COMMON NORMALS: no meningeal signs and no JVD Resp: COMMON NORMALS: normal respiratory effort, No retractions, No use of accessory muscles, clear to auscultation bilaterally and percussion normal AUSCULTATION: clear to auscultation bilaterally PERCUSSION: percussion normal Cardio: COMMON NORMALS: no JVD, regular rate, regular rhythm, S1 normal heart sound present, S2 normal heart sound present, No gallops present (Cardio), No clicks present (Cardio), No murmurs present (Cardio), No rub (Cardio) and Peripheral pulses 2+ throughout RATE: regular rate RHYTHM: regular rhythm HEART SOUNDS: S1 normal heart sound present and S2 normal heart sound present PERIPHERAL PULSES: Peripheral pulses 2+ throughout GI: COMMON NORMALS: Normal to inspection, nondistended, normoactive bowel sounds present, Soft to palpation, No hepatosplenomegaly present, no masses and no bruits PALPATION: Yes Soft to palpation, Yes Tenderness to palpation present (GI) (epigastric) and Yes No hepatosplenomegaly present Extremity: COMMON NORMALS: normal to inspection, full ROM, capillary refill normal, no calf tenderness and no pedal edema Neuro: COMMON NORMALS: patient oriented x3 SENSORIUM/ORIENTATION: Yes alert MENINGEAL SIGNS: Yes no meningeal signs Skin: COMMON NORMALS: no rashes or lesions noted, no wounds, turgor normal, no jaundice, no petechiae and no mottling GENERAL SKIN EXAM: no rashes or lesions noted and turgor normal Course Reevaluation(s): Reevaluation #1: Discussed her lab and imaging findings with her, negative for significant acute findings. No obvious cause for her symptoms. She states that this feels like she did when she was diagnosed with a stomach ulcer many years ago, just feels worse. I advised that she will need an upper and lower GI endoscopy. She voiced understanding and is in agreement with the plan. Time: 15:09 Vital Signs: Vital signs: Vital Signs Pulse Rate 18 L 11/25/20 15:29 Respiratory Rate 89 H 11/25/20 15:29 Blood Pressure 115/70 11/25/20 15:29 Pulse Oximetry 98 11/25/20 15:29 MDM - GI Bleed MDM Narrative: Medical decision making narrative: 35-year-old female patient who presents to the emergency department with abdominal pain and bloody stools following diarrhea. Hemoglobin was normal, other lab and imaging findings were unremarkable. She has a history of stomach ulcers and has been on PPIs. Since her evaluation in the emergency department is unremarkable and cannot reveal any obvious cause for her symptoms she is discharged home with a prescription for PPI and sucralfate. She will be referred for an upper GI endoscopy. She is discharged home with a prescription for a PPI and sucralfate. Medical Records: Attestation: I reviewed the patient's medical records. Lab Data: Attestation: I reviewed the patient's lab results. Labs: Lab Results 11/25/20 11/25/20 11/25/20 Range/Units 11:32 11:32 11:32 WBC 8.3 (4.0-10.0) 10^3/ uL RBC 5.12 (4.1-5.3) 10^6/u L Hgb 14.3 (11.5-15.3) g/dL Hct 43.1 (37.0-47.0) % MCV 84.2 (81-99) fL MCH 27.9 L (28.0-34.0) pg MCHC 33.2 (30.0-36.0) g/dL RDW 12.9 (12.1-15.1) % Plt Count 325 (130-400) 10^3/c mm MPV 9.8 (7.4-10.4) fL Neut % (Auto) 84.9 % Lymph % (Auto) 9.0 % Simpson % (Auto) 3.7 % Eos % (Auto) 1.8 % Baso % (Auto) 0.4 % Neut # (Auto) 7.07 (1.8-7.7) 10^3/u L Lymph # (Auto) 0.8 (0.8-4.8) 10^3/u L Simpson # (Auto) 0.3 (0.2-0.9) 10^3/u L Eos # (Auto) 0.2 (0.0-0.8) 10^3/u L Baso # (Auto) 0.0 (0.0-0.1) 10^3/u L Nucleated RBC % (a uto) 0 % Nucleated RBCs # 0.0 /100WBC PT 12.70 (12.1-14.9) SECO NDS INR 0.92 (0.8-1.2) Sodium 140 (136-145) mmol/L Potassium 4.1 (3.5-5.1) mmol/L Chloride 107 (98-107) mmol/L Carbon Dioxide 26 (22-29) mmol/L Anion Gap 11.1 (5-19) BUN 12 (6-20) mg/dL Creatinine 0.8 (0.5-0.9) mg/dL GFR Calculation 81.2 L (90-130) mL/min Glucose 92 (65-115) mg/dL Calculated Osmolal ity 289 (285-295) mOsm/k g Calcium 8.6 (8.5-10.5) mg/dL Total Bilirubin 0.5 (0.15-1.2) mg/dL AST 14 (0-32) U/L ALT 13 (0-33) U/L Alkaline Phosphata se 71 (35-105) IU/L C-Reactive Protein 3.0 (0.0-4.9) mg/L Total Protein 6.7 (6.6-8.7) g/dL Albumin 4.0 (3.5-5.2) g/dL Globulin 2.7 (1.3-4.6) g/dL Lipase 29 (13-60) U/L HCG, Qual (Negative) Urine Color (Yellow) Urine Appearance (CLEAR) Urine pH (5-7) Ur Specific Gravit y (1.005-1.030) Urine Protein (Negative) Urine Glucose (UA) (Normal) Urine Ketones (Negative) Urine Blood (Negative) Urine Nitrate (Negative) Urine Bilirubin (Negative) Prot Sulfosalicyli c Acd (Negative) Urine Urobilinogen (Negative) mg/dL Ur Leukocyte Marlin ase (Negative) Blood Type Rho(D) Type Antibody Screen 11/25/20 11/25/20 11/25/20 Range/Units 11:32 11:35 11:35 WBC (4.0-10.0) 10^3/ uL RBC (4.1-5.3) 10^6/u L Hgb (11.5-15.3) g/dL Hct (37.0-47.0) % MCV (81-99) fL MCH (28.0-34.0) pg MCHC (30.0-36.0) g/dL RDW (12.1-15.1) % Plt Count (130-400) 10^3/c mm MPV (7.4-10.4) fL Neut % (Auto) % Lymph % (Auto) % Simpson % (Auto) % Eos % (Auto) % Baso % (Auto) % Neut # (Auto) (1.8-7.7) 10^3/u L Lymph # (Auto) (0.8-4.8) 10^3/u L Simpson # (Auto) (0.2-0.9) 10^3/u L Eos # (Auto) (0.0-0.8) 10^3/u L Baso # (Auto) (0.0-0.1) 10^3/u L Nucleated RBC % (a uto) % Nucleated RBCs # /100WBC PT (12.1-14.9) SECO NDS INR (0.8-1.2) Sodium (136-145) mmol/L Potassium (3.5-5.1) mmol/L Chloride (98-107) mmol/L Carbon Dioxide (22-29) mmol/L Anion Gap (5-19) BUN (6-20) mg/dL Creatinine (0.5-0.9) mg/dL GFR Calculation (90-130) mL/min Glucose (65-115) mg/dL Calculated Osmolal ity (285-295) mOsm/k g Calcium (8.5-10.5) mg/dL Total Bilirubin (0.15-1.2) mg/dL AST (0-32) U/L ALT (0-33) U/L Alkaline Phosphata se (35-105) IU/L C-Reactive Protein (0.0-4.9) mg/L Total Protein (6.6-8.7) g/dL Albumin (3.5-5.2) g/dL Globulin (1.3-4.6) g/dL Lipase (13-60) U/L HCG, Qual Negative (Negative) Urine Color Straw (Yellow) Urine Appearance Clear (CLEAR) Urine pH 8 H (5-7) Ur Specific Gravit y 1.010 (1.005-1.030) Urine Protein Neg (Negative) Urine Glucose (UA) Norm (Normal) Urine Ketones Negative (Negative) Urine Blood Neg (Negative) Urine Nitrate Negative (Negative) Urine Bilirubin Neg (Negative) Prot Sulfosalicyli c Acd Negative (Negative) Urine Urobilinogen Norm (Negative) mg/dL Ur Leukocyte Marlin ase Negative (Negative) Blood Type B Positive Rho(D) Type Positive / 4+ Antibody Screen Negative Imaging Data^: CT Abd/Pel: Attestation: I personally reviewed and interpreted this imaging study as follows: Radiologist's impression: [employer] [id number] Scan ReportSigned Patient: Frank Anderson #: [id number]: 1985Acct#:[id number]/Sex: 35 / FADM Date: 11/25/20Loc: ERRoom/Bed:Attending Dr: Ordering Provider/Ordering MD: Katalina Márquez MD, [facility] Date of Service: 11/25/20 Procedure(s): CT abdomen pelvis w con* [id number] Accession Number(s): [id number] Report Number: [id number] PROCEDURE INFORMATION: Exam: CT Abdomen And Pelvis With Contrast Exam date and time: 11/25/2020 11:26 AM Age: 35 years old Clinical indication: Other: Hematochezia; Prior surgery; Surgery date: 6+ months; Surgery type: C-sect TECHNIQUE: Imaging protocol: Computed tomography of the abdomen and pelvis with contrast. Radiation optimization: All CT scans at this facility use at least one of these dose optimization techniques: automated exposure control; mA and/or kV adjustment per patient size (includes targeted exams where dose is matched to clinical indication); or iterative reconstruction. Contrast material: OMNI 300; Contrast volume: 95 ml; Contrast route: INTRAVENOUS (IV); COMPARISON: CT abdomen pelvis w con* [id number] 09/20/2015 1:40 PM RADIATION DOSE METRICS: Total DLP (mGy-cm): 1354.32 FINDINGS: Liver: Normal. No mass. Gallbladder and bile ducts: The gallbladder has been surgically removed. There is mild intra and extrahepatic biliary ductal dilatation, likely secondary to post cholecystectomy status. Pancreas: Normal. No ductal dilation. Spleen: Normal. No splenomegaly. Adrenal glands: Normal. No mass. Kidneys and ureters: Possible subtle heterogeneous attenuation of the right kidney. No hydronephrosis or nephrolithiasis. Stomach and bowel: Unremarkable. No obstruction. No mucosal thickening. Appendix: No evidence of appendicitis. Intraperitoneal space: Unremarkable. No free air. No significant fluid collection. Vasculature: Unremarkable. No abdominal aortic aneurysm. Lymph nodes: Unremarkable. No enlarged lymph nodes. Urinary bladder: Unremarkable as visualized. Reproductive: Normal uterus. Small bilateral ovarian cysts noted, measuring 1.2 cm on the right and 0.8 cm on the left. Bones/joints: Unremarkable. No acute fracture. Soft tissues: Unremarkable. CT/CT abdomen pelvis w con* [id number] IMPRESSION: Possible subtle heterogeneous attenuation of the right kidney, which can be seen with pyelonephritis. Clinical correlation is recommended. Radiation Dose CTDIVOL = (mGy): DLP = 1354.32 (mGy-cm) Dictated By:Colby Reyesed By:Ana Laura Reyes Date/Time:11/25/20 1340DD/ 1339 Discharge Plan Discharge Patient Disposition: Home Clinical Impression: Gastritis Qualifiers: Gastritis type: unspecified gastritis Chronicity: acute Gastritis bleeding: with bleeding Qualified Code(s): K29.01 - Acute gastritis with bleeding Condition: Stable Prescriptions: New Nexium 40 mg capsule,delayed release(DR/EC) 40 mg PO DAILY Qty: 30 RF: 0 sucralfate 1 gram tablet 1 g PO Q6H 28 Days Qty: 112 RF: 0 Continued prenat.vits,brie,mdi-jhyn-bctnh Tablet 1 tab PO DAILY RF: 0 Discontinued pantoprazole 40 mg tablet,delayed release (DR/EC) 40 mg PO DAILY RF: 0 Discharge Orders: Discharge ED (Routine); Ordered 11/25/20 Ordered By: Katalina Márquez Referrals: Eitan Lucas MD [Primary Care Provider] - 1-3 days Discharge Diet: As Directed Discharge Activity: Increase activity as tolerated Patient Instructions: Gastritis (ED), Diet for Ulcers and Gastritis (ED) Activity Restrictions/Additional Instructions: Return for any new or worsening symptoms. Take the medications as prescribed. You will be contacted by the case management staff to schedule an appointment for an upper and lower GI endoscopy. Follow the diet as prescribed. Coding Level of Care Code ED Fire Apparatus Engineer for Chg Fwd Exam Comprehensive
[2020-11-25 11:42] LABS: Add Urine Microscopic? NO; Charge for UA Resulting for Rev
[2020-11-25 11:47] LABS: Basophils % 0.4 %; Eosinophils # 0.2 10^3/uL (0.0-0.8); Eosinophils % 1.8 %; Hematocrit 43.1 % (37.0-47.0); Hemoglobin 14.3 g/dL (11.5-15.3); Lymphocytes # 0.8 10^3/uL (0.8-4.8); Mean Corpuscular HGB Conc 33.2 g/dL (30.0-36.0); Mean Corpuscular Hemoglobin 27.9 pg (28.0-34.0); Mean Corpuscular Volume 84.2 fL (81-99); Mean Platelet Volume 9.8 fL (7.4-10.4); Monocytes # 0.3 10^3/uL (0.2-0.9); Monocytes % 3.7 %; Neutrophils # 7.07 10^3/uL (1.8-7.7); Neutrophils % 84.9 %; Nucleated Red Blood Cells % 0 %; Platelet Count 325 10^3/cmm (130-400); Red Blood Count 5.12 10^6/uL (4.1-5.3); Red Cell Distribution Width 12.9 % (12.1-15.1); White Blood Count 8.3 10^3/uL (4.0-10.0)
[2020-11-25 11:49] LABS: Urine Appearance Clear (CLEAR); Urine Color Straw (Yellow)
[2020-11-25 11:50] LABS: Bilirubin Urine Neg (Negative); Blood Urine Neg (Negative); Glucose Urine UA Norm (Normal); Ketones Urine Negative (Negative); Leukocyte Esterase Urine Negative (Negative); Nitrate Urine Negative (Negative); Protein Urine Neg (Negative); Sulfosalicylic Acid Urine Negative (Negative); Urobilinogen Urine Norm (Negative); pH Urine 8 (5-7)
[2020-11-25 11:51] LABS: HCG Qualitative Urine. Negative (Negative)
[2020-11-25 12:00] LABS: INR 0.92 (0.8-1.2)
[2020-11-25 12:09] LABS: Alanine Aminotransferase 13 U/L (0-33); Alkaline Phosphatase 71 IU/L (35-105); Anion Gap 11.1 (5-19); Aspartate Amino Transferase 14 U/L (0-32); Blood Urea Nitrogen 12 mg/dL (6-20); Calcium 8.6 mg/dL (8.5-10.5); Carbon Dioxide 26 mmol/L (22-29); Chloride 107 mmol/L (98-107); Globulin 2.7 g/dL (1.3-4.6); Glomerular Filtration Rate 81.2 mL/min (90-130); Glucose 92 mg/dL (65-115); Lipase 29 U/L (13-60); Osmolality Calculated 289 mOsm/kg (285-295); Potassium 4.1 mmol/L (3.5-5.1); Sodium 140 mmol/L (136-145); Total Bilirubin 0.5 mg/dL (0.15-1.2); Total Protein 6.7 g/dL (6.6-8.7)
[2020-11-25 12:23] VITALS: BP 106/76; PULSE 88; RESP 16; O2SAT 99
[2020-11-25] MEDS: iohexol 300 mg/mL 100 mL Btl IV (12:54)
[2020-11-25] MEDS: lidocaine 2% viscous 15 ML, aluminum-mag hydrox-simethicon 30 ML, sucralfate oral liq 1 GM PO (13:58)
[2020-11-25] MEDS: pantoprazole 40 mg SDV IVP (13:58)
[2020-11-25 14:07] VITALS: BP 115/70; PULSE 95; RESP 18; O2SAT 99
[2020-11-25 15:29] VITALS: BP 115/70; PULSE 18; RESP 89; O2SAT 98
--- NOTE | 2020-11-27 09:21 | DCPLANNER ---
Addendum entered by Lydia Rodriguez 12/01/20 08:19: [employer] received notification from general surgery that they were unable to reach patient, they tried calling patient on 11.27.20 and 11.29.20 and there was no answer. [employer] called and spoke with patient on 12.01.20, patient stated that she has followed up with her primary care physician, and he is referring her to another physician. manager non profit emailed Sandra and Abby and let them know that they could disregard the referral at this time. Original Note: manager non profit had message to schedule a follow up appointment for patient with general surgery for an upper and lower GI endoscopy for bloody stools. manager non profit emailed patients information to both Sandra and Abby at [facility] General Surgery. Patients information will be printed and reviewed. Clinic will call patient with appointment information.
== END 2020-11-25 15:30 | disposition home or self-care (01) ==
PROVIDERS: Emergency Provider Family Medicine; PCP Family Medicine
DX: K29.01 Acute gastritis with bleeding (principal)
CPT/HCPCS: 74177; 80053; 81003; 81025; 83690; 85025; 85610; 86140; 86850; 86900; 96374; 96375; 99283; C9113; Q9967

== ENCOUNTER → 2021-02-26 15:49 | Outpatient (BNVA) | payer OTHER, SELFPAY | PROVIDERS: PCP Family Medicine; Visit Provider Surgery | DX: Z01.812 Encounter for preprocedural laboratory examination (principal); Z20.822 Contact with and (suspected) exposure to COVID-19 | CPT/HCPCS: 87635 ==

== ENCOUNTER 2021-03-01 06:06 | Day surgery (SDC) | payer OTHER, SELFPAY ==
[2021-02-27 11:19] VITALS: BMI 25.7
[2021-03-01 06:30] VITALS: BP 118/79; PULSE 90; RESP 16; TEMP 36.8; O2SAT 100
[2021-03-01 06:39] LABS: OR HCG Qualitative Urine Negative (Negative)
[2021-03-01] MEDS: sodium chloride 0.9% 1,000 ML 30 ML IV (06:43)
--- NOTE | 2021-03-01 06:45 | W.PM.OPSUD ---
Surgery/Procedure H&P Update DATE OF PROCEDURE: March 01, 2021 DATE H&P PERFORMED: 03/09/21 H&P UPDATE INFORMATION: No changes to prior documentation PREOP DIAGNOSIS: abdo pain, nausea, GERD PLANNED PROCEDURE: Operation Date: 03/01/21 07:00 Proposed Procedures p EGD 80849 K21.9 R10.13 R11.0 Z87.11(Not Applicable) - Piotr Lyon MD
--- NOTE | 2021-03-01 06:50 | ANES.PREANE2 ---
Pre-Anesthetic Assessment Pre-Anesthetic Assessment: Height/Weight: Height 1.63 m Weight 68.039 kg Temp Pulse Resp BP Pulse Ox 98.3 F 90 16 118/79 100 03/01/21 06:30 03/01/21 06:30 03/01/21 06:30 03/01/21 06:30 03/01/21 06:30 Preop Diagnosis: abdo pain, nausea, GERD Proposed Procedure: Operation Date: 03/01/21 07:00 Proposed Procedures p EGD 23937 K21.9 R10.13 R11.0 Z87.11(Not Applicable) - Piotr Lyon MD Familial anesthetic complications: none Was Beta Mabel taken within 24 hours: N/A Was Clonidine taken within 24 hours: N/A Last intake: Intake Last Liquid Date 02/28/21 Last Liquid Time 21:30 Last Solid Date 02/28/21 Last Solid Time 21:30 Social: Social History: Alcohol (1 drink a week) and No tobacco Exam: Pre-Anes Outpt Exam: alert, oriented x 3, clear to auscultation bilaterally and regular rate & rhythm Airway: Submandibular: WNL Cervical ROM: WNL MP: 1 Dentition: Full History/ROS: Other Pulmonary: Pulmonary: Asthma (hasnt used an inhaler in years) CV/HEM: Comments: preeclampsia that has resolved. also had blood clots that caused early so want to do blood thinners but have not at this time : : None reported Hepatic: Hepatic: None reported GI: GI: GERD Comments: incisional hernia repaired Metabolic: Metabolic: None reported Musc/skel: Musc/skel: None reported Neuropsych: Neuropsych: None reported Anesthetic Plan: ASA status: 2 Anesthesia: MAC Risk of > 500 ml blood loss (7ml/kg in children): No Meds/Allergies Current Medications: Current Medications Generic Name Dose Route Start Last Admin Trade Name Freq PRN Reason Stop Dose Admin Sodium Chloride 1,000 mls @ 30 ml s/hr 03/01/21 06:15 03/01/21 06:43 Sodium Chloride 0.9% IV 03/02/21 06:14 30 mls/hr .Q24H FERN Administration PFSH Anesthesia PFSH: Surgical History History of delivery Social History Smoking and tobacco status: never smoked History of recent travel: No Female Reproductive History: Date of last menstrual period: 10/17/19 Data Anesthesia Other Labs: Laboratory Results - last 48 hr 03/01/21 06:25 Urine HCG, Qual Negative Cardiac Studies: No Data to Display
[2021-03-01 07:08] VITALS: BP 99/63; PULSE 85; RESP 16; TEMP 36.1; O2SAT 98
[2021-03-01 07:17] VITALS: BP 104/69; PULSE 99; RESP 16; O2SAT 100
--- NOTE | 2021-03-01 08:09 | ANE.PACU2 ---
Inpatient post-anesthesia follow up: Airway intact: Yes Vital signs: Temperature 97.0 F Pulse Rate 99 Respiratory Rate 16 Blood Pressure 104/69 Pulse Oximetry 100 Oxygen Delivery Me thod Room Air Oxygen Flow Rate 3 Fraction of Inspir ed Oxygen Hydration adequate: Yes Nausea and vomiting: No Pain level: 1 Mental status: Baseline
[2021-03-02 06:26] LABS: H. Pylori / CLO Test Negative
== END 2021-03-01 08:10 | disposition home or self-care (01) ==
PROVIDERS: Anesthesiology; PCP Family Medicine; Visit Provider Surgery
PROC: 0DJ08ZZ Inspection of Upper Intestinal Tract, Via Natural or Artificial Opening Endoscopic (ICD-10-PCS; CPT 43235; principal; 2021-03-01 07:00)
DX: R10.13 Epigastric pain (principal); R11.0 Nausea; Z87.11 Personal history of peptic ulcer disease; K21.9 Gastro-esophageal reflux disease without esophagitis; K29.70 Gastritis, unspecified, without bleeding
CPT/HCPCS: 43239; 84703; 87077; 96360; J2704; J7030

== ENCOUNTER → 2021-03-28 11:48 | Outpatient (BNVA) | payer OTHER, SELFPAY | PROVIDERS: PCP Family Medicine; Visit Provider Nurse Practitioner Family | DX: J02.9 Acute pharyngitis, unspecified (principal); J30.9 Allergic rhinitis, unspecified; R09.82 Postnasal drip | CPT/HCPCS: 87071; 87880 ==